=== PATIENT | female | born 1960 | race Hispanic/Latino ===

== ENCOUNTER 2023-11-14 10:41 | Emergency (ER) | payer OTHER ==
[~2023-11-14] VITALS: Ht 157.5 cm; Wt 59.0 kg
[2023-11-14 11:08] VITALS: TEMP 99
[2023-11-14 12:31] LABS: BASOPHILS % 0.4 % (0.0-1.0); EOSINOPHILS % 0.5 % (0.0-6.0); HEMATOCRIT 40.2 % (34.2-44.1); HEMOGLOBIN 12.5 g/dL (12.0-16.0); LYMPHOCYTES # (AUTO) 2.8 (1.0-3.2); LYMPHOCYTES % 33.9 % (18.0-39.1); MEAN CORPUSCULAR HEMOGLOBIN 28.3 pg (28-32); MEAN CORPUSCULAR HGB CONC 31.1 g/dL (31-35); MEAN CORPUSCULAR VOLUME 91.2 fL (81-99); MONOCYTES # (AUTO) 0.5 (0.2-0.8); MONOCYTES % 6.2 % (4.4-11.3); NEUTROPHILS # (AUTO) 4.9 (2.1-6.9); NEUTROPHILS % 58.6 % (38.7-80.0); PLATELET COUNT 350 x10e3/uL (140-360); RED BLOOD COUNT 4.41 x10e6/uL (3.6-5.1); WHITE BLOOD COUNT 8.34 x10e3/uL (4.8-10.8)
[2023-11-14 12:42] LABS: ALANINE AMINOTRANSFERASE 11 IU/L (0-55); ALBUMIN 4.2 g/dL (3.5-5.0); ALBUMIN/GLOBULIN RATIO 0.8 (0.8-2.0); ALKALINE PHOSPHATASE 90 IU/L (40-150); ANION GAP 14.9 mmol/L (8-16); BILIRUBIN,TOTAL 0.5 mg/dL (0.2-1.2); BLOOD UREA NITROGEN < 5 mg/dL (7-26); BUN/CREATININE RATIO 6 (6-25); CALCIUM 9.5 mg/dL (8.4-10.2); CARBON DIOXIDE 23 mmol/L (22-29); CHLORIDE 102 mmol/L (98-107); CREATININE, SERUM 0.84 mg/dL (0.57-1.11); EST GLOMERULAR FILTRATION RATE 79 ML/MIN (>=60); GLUCOSE 102 mg/dL (74-118); POTASSIUM 3.9 mmol/L (3.5-5.1); SODIUM 136 mmol/L (136-145); TOTAL PROTEIN 9.4 g/dL (6.5-8.1)
[2023-11-14] MEDS ORDERED: IOPAMIDOL 370 MG/ML 100 ML INFUS..BTL INJ ONE (12:58)
[2023-11-14 16:05] VITALS: PULSE 64; RESP 16
[2023-11-14 16:06] VITALS: BP 107/67; PULSE 64; RESP 16; O2SAT 100
== END 2023-11-14 16:04 | disposition home or self-care (01) ==
LOC: ER 11:57
DX: R10.13 Epigastric pain (principal); R50.9 Fever, unspecified; R11.0 Nausea; K21.9 Gastro-esophageal reflux disease without esophagitis
CPT/HCPCS: 36415; 74177; 80053; 83690; 85025; 93005; 99284; Q9967